=== PATIENT | female | born 1990 | race Caucasian/White ===

== ENCOUNTER 2023-10-22 09:43 | Outpatient (CLI) | payer OTHER | END 2023-10-22 09:54 | disposition home or self-care (01) | LOC: SONOGRAMA 09:43 | DX: R10.12 Left upper quadrant pain (principal); R10.32 Left lower quadrant pain ==

== ENCOUNTER 2023-10-22 10:16 | Outpatient (CLI) | payer OTHER ==
[2023-10-22 11:50] LABS: ALBUMIN 4.1 gm/dL (3.4-5.0); BILIRUBIN TOTAL 1.44 mg/dL (0.3-1.2); BILIRUBIN,CONJUGATED 0.32 mg/dL (0.0-0.2); BILIRUBIN,UNCONJUGATED 1.12 mg/dL (0.0-0.6); TOTAL PROTEIN 7.6 gm/dL (6.4-8.2)
== END 2023-10-22 10:26 | disposition home or self-care (01) ==
LOC: LAB 10:16
DX: R74.01 Elevation of levels of liver transaminase levels (principal)

== ENCOUNTER 2023-10-26 18:24 | Emergency (ER) | payer OTHER ==
[~2023-10-26] VITALS: Ht 160 cm; Wt 53.1 kg
[2023-10-26] MEDS ORDERED: FAMOTIDINE/PF 20 MG/2 ML VIAL IV STA (19:14)
[2023-10-26] MEDS ORDERED: 0.9 % SODIUM CHLORIDE 1,000 ML IV STA (19:15)
[2023-10-26] MEDS ORDERED: ONDANSETRON HCL 2 MG/ML VIAL IV STA (19:16)
[2023-10-26 19:36] LABS: HEMATOCRIT 38.5 % (36.0-45.00); HEMOGLOBIN 13.2 g/dL (12.0-15.00); MEAN CELL VOLUME 91.8 fL (80.00-100.00); MEAN CORPUSCULAR HEMOGLOBIN 31.5 pg (27.00-32.0); MEAN CORPUSCULAR HGB CONC 34.3 g/dl (32.0-36.0); PLATELET COUNT 233 K/uL (150-450); RED CELL DISTRIBUTION WIDTH 12.8 % (11.5-14.5)
[2023-10-26 20:02] LABS: CALCIUM 9.3 mg/dL (8.5-10.1); CREATININE SERUM 0.62 mg/dL (0.55-1.02); GFR 112.27; POTASSIUM 3.73 mEq/L (3.5-5.1)
== END 2023-10-26 21:18 | disposition home or self-care (01) ==
LOC: ER 18:24
PROVIDERS: General Practice
DX: K29.70 Gastritis, unspecified, without bleeding (principal)

== ENCOUNTER 2023-12-14 20:55 | Emergency (ER) | payer OTHER ==
[~2023-12-14] VITALS: Ht 157.5 cm; Wt 53.1 kg
[2023-12-14] MEDS ORDERED: ORPHENADRINE CITRATE 30 MG/ML AMPUL IM STA (22:23)
[2023-12-15] MEDS ORDERED: ZEBUTAL 50-3251 EACH PO (03:06)
== END 2023-12-15 03:32 ==
LOC: ER 20:56
DX: S00.93XA Contusion of unspecified part of head, initial encounter (principal); W19.XXXA Unspecified fall, initial encounter; Y93.89 Activity, other specified; Y92.89 Other specified places as the place of occurrence of the external cause; Y99.9 Unspecified external cause status